=== PATIENT | male | born 1965 | race Caucasian/White ===

== ENCOUNTER 2016-12-06 09:29 | Inpatient (IN) | payer SELFPAY ==
[~2016-12-06] VITALS: Ht 182.9 cm; Wt 104.9 kg
[2016-12-06 10:43] LABS: BASOPHIL COUNT 0.1 K/uL (0-0.1); EOSINOPHIL (%) 2.3 % (0-5); EOSINOPHIL COUNT 0.2 K/uL (0-0.3); HEMATOCRIT 43.8 % (38.0-50.0); IMMATURE GRANULOCYTE (%) 0.2 % (0.0-0.7); INSTRUMENT ABS NEUTROPHIL CT 5.8 K/uL; LYMPHOCYTE COUNT 1.5 K/uL (1.0-2.8); MCH 28.9 PG (29.0-34.0); MCHC 32.2 G/DL (30.0-36.0); MCV 89.8 FL (86-99); MEAN PLAT.VOLUME 9.1 uM^3 (9.0-12.4); MONOCYTE (%) 9.1 % (3-12); MONOCYTE COUNT 0.8 K/uL (0-0.8); NEUTROPHIL (%) 69.7 % (45-76); NEUTROPHIL COUNT 5.8 K/uL (1.8-6.4); PLATELET COUNT 210 K/uL (156-360); RBC DIS.WIDTH-CV 12.4 % (11.8-14.6); RBC DIS.WIDTH-SD 40.7 % (39-53); RED BLOOD COUNT 4.88 M/uL (4.00-5.50); WHITE BLOOD COUNT 8.3 K/uL (4.1-10.2)
[2016-12-06 10:47] LABS: INTER. NORMALIZED RATIO 1.1; PROTHROMBIN TIME 12.2 SEC (10.2-12.9)
[2016-12-06 10:50] LABS: PTT 32.1 SEC (25-37)
[2016-12-06 10:53] LABS: CHLORIDE 106 mEq/L (99-109); POTASSIUM 4.3 mEq/L (3.7-5.4); SODIUM 142 mEq/L (136-147)
[2016-12-06 10:55] LABS: GLUCOSE 103 mg/dL (70-99)
[2016-12-06 10:56] LABS: ANION GAP 8 MEQ/L (2-14)
[2016-12-06 10:57] LABS: TOTAL BILIRUBIN 0.5 mg/dL (0.0-1.0)
[2016-12-06 10:58] LABS: ALKALINE PHOSPHATASE 56 IU/L (3-129); SERUM ETHYL ALCOHOL < 10 mg/dL
[2016-12-06 10:59] LABS: GFR ESTIMATE (CALCULATED) > 59 mL/min/
[2016-12-06 11:00] LABS: UREA NITROGEN (BUN) 20 mg/dL (9-23)
[2016-12-06 11:02] LABS: TROP-I INTERPRETATION NEGATIVE; TROPONIN-I < 0.01 ng/mL (0.0-0.30)
[2016-12-06 11:02] LABS: CREATINE KINASE 186 IU/L (1-294); TOTAL CK 186 IU/L (1-294)
[2016-12-06 11:08] LABS: CK-MB 5.5 ng/mL (0.0-4.9)
[2016-12-06 14:24] LABS: ADD MIUA? YES; BILIRUBIN NEGATIVE; BLOOD NEGATIVE; COLOR AMBER ((YELLOW)); GLUCOSE (STRIP) NEGATIVE; KETONES NEGATIVE; LEUKOCYTES NEGATIVE; NITRITE NEGATIVE; PROTEIN (STRIP) 30; UROBILINOGEN 0.2 MG/DL (0.2-1.0)
[2016-12-06 14:44] LABS: BACTERIA RARE /HPF; CALCIUM OXALATE CRYSTALS 2+ /HPF; EPITHELIAL CELLS 1+ /HPF; HYALINE CASTS TNTC /LPF; MUCUS 4+ /LPF; UCUL ADDED? NO; WHITE BLOOD CELLS 0-5 /HPF (0-5)
[2016-12-06 14:55] LABS: AMPHETAMINE NEGATIVE (500 ng/mL); BARBITURATES NEGATIVE (200 ng/mL); BENZODIAZEPINES PRESUMPTIVE POSITIVE (150 ng/mL); COCAINE NEGATIVE (150 ng/mL); INTERNAL CONTROLS VALID? YES; METHADONE NEGATIVE (200 ng/mL); METHAMPHETAMINE PRESUMPTIVE POSITIVE (500 ng/mL); OPIATES (MORPHINE) PRESUMPTIVE POSITIVE (100 ng/mL); OXYCODONE NEGATIVE (100 ng/mL); PHENCYCLIDINE NEGATIVE (25 ng/mL); PROPOXYPHENE NEGATIVE (300 ng/mL); THC CANNABINOIDS NEGATIVE (50 ng/mL); TRICYCLIC ANTIDEPRESSANTS NEGATIVE (300 ng/mL)
[2016-12-06 14:56] LABS: ADD MEDTOX COMMENT Y
[2016-12-06 15:34] LABS: BENZODIAZEPINES, URINE SCREEN POSITIVE (200 ng/mL)
[2016-12-06 16:31] VITALS: BP 161/92
[2016-12-06 19:16] LABS: TROP-I INTERPRETATION NEGATIVE; TROPONIN-I < 0.01 ng/mL (0.0-0.30)
[2016-12-06 21:00] VITALS: BP 135/75
[2016-12-07] VITALS (20 sets, daily range): BP systolic 99–220; BP diastolic 56–129
[2016-12-07 05:10] LABS: METH RESISTANT S AUREUS PCR NEGATIVE (NEGATIVE)
[2016-12-07 05:16] LABS: PROBE CHECK PASS; SPECIMEN PROCESSING CONTROL PASS
[2016-12-07 05:45] LABS: BASE EXCESS 3.4 mEq/L (-3 to +3); BICARBONATE 28.5 mEq/L (22-26); CARBOXY HGB 2.3 % (0-5); METHEMOGLOBIN 1.6 % (0-1.5); PCO2 44 mm Hg (35-45); PO2 113 mm Hg (80-100); pH 7.42 (7.35-7.45)
[2016-12-07 05:46] LABS: COMMENTS - BLOOD GASES C+; DEVICE VENT; FI02 40 %; MECHANICAL RATE 16 resp/min; MODE AC; PEEP 5 CM/H20; SITE RR; TIDAL VOLUME 500 ML; TOTAL RESP RATE 16 resp/min
[2016-12-07 06:13] LABS: TROP-I INTERPRETATION NEGATIVE; TROPONIN-I < 0.01 ng/mL (0.0-0.30)
[2016-12-07 06:42] LABS: ALKALINE PHOSPHATASE 55 IU/L (3-129); ANION GAP 13 MEQ/L (2-14); CHLORIDE 105 MEQ/L (99-109); DIRECT BILIRUBIN 0.1 mg/dL (0.0-0.3); GFR ESTIMATE (CALCULATED) > 59 mL/min/; GLUCOSE 90 mg/dL (70-99); POTASSIUM 4.4 MEQ/L (3.7-5.4); SAMPLE HEMOLYSIS CHECK 1; SAMPLE ICTERIC CHECK 0; SAMPLE LIPEMIA CHECK 0; SODIUM 142 MEQ/L (136-147); TOTAL BILIRUBIN 0.8 MG/DL (0.0-1.0); UREA NITROGEN (BUN) 15 mg/dL (9-23)
[2016-12-07 07:56] LABS: TRIGLYCERIDES 150 MG/DL (Normal: <150)
[2016-12-07 07:58] LABS: EOSINOPHIL (%) 1.3 % (0-5); EOSINOPHIL COUNT 0.1 K/uL (0-0.3); IMMATURE GRANULOCYTE (%) 0.3 % (0.0-0.7); LYMPHOCYTE COUNT 1.1 K/uL (1.0-2.8); MCH 30.3 PG (29.0-34.0); MCHC 34.6 G/DL (30.0-36.0); MCV 87.4 FL (86-99); MEAN PLAT.VOLUME 9.1 uM^3 (9.0-12.4); MONOCYTE (%) 6.8 % (3-12); MONOCYTE COUNT 0.5 K/uL (0-0.8); NEUTROPHIL (%) 76.8 % (45-76); PLATELET COUNT 208 K/uL (156-360); RBC DIS.WIDTH-CV 12.2 % (11.8-14.6); RBC DIS.WIDTH-SD 38.9 % (39-53); RED BLOOD COUNT 4.69 M/uL (4.00-5.50); WHITE BLOOD COUNT 7.8 K/uL (4.1-10.2)
[2016-12-07 12:49] LABS: POINT-OF-CARE METER ID UU13113748
[2016-12-07 18:45] LABS: ADD MIUA? YES; BILIRUBIN NEGATIVE; BLOOD SMALL; COLOR YELLOW ((YELLOW)); GLUCOSE (STRIP) NEGATIVE; KETONES 20; LEUKOCYTES NEGATIVE; NITRITE NEGATIVE; PROTEIN (STRIP) NEGATIVE; SPECIFIC GRAVITY 1.023 (1.000-1.030); UROBILINOGEN 0.2 MG/DL (0.2-1.0)
[2016-12-07 23:17] LABS: RED BLOOD CELLS 0-5 /HPF (0-5)
[2016-12-07 23:19] LABS: WHITE BLOOD CELLS RARE /HPF (0-5)
[2016-12-07 23:20] LABS: BACTERIA 2+ /HPF; EPITHELIAL CELLS NONE SEEN /HPF; UCUL ADDED? NO; URIC ACID CRYSTALS 1+ /HPF
[2016-12-07 23:22] LABS: AMORPHOUS URATES CRYSTALS 4+; MUCUS NONE SEEN /LPF
[2016-12-07 23:36] LABS: POINT-OF-CARE METER ID UU13113748
[2016-12-08] VITALS (26 sets, daily range): BP systolic 125–188; BP diastolic 72–106
[2016-12-08 05:51] LABS: HEMATOCRIT 43.6 % (38.0-50.0); MCH 29.6 PG (29.0-34.0); MCHC 34.2 G/DL (30.0-36.0); MCV 86.5 FL (86-99); MEAN PLAT.VOLUME 9.6 uM^3 (9.0-12.4); PLATELET COUNT 221 K/uL (156-360); RBC DIS.WIDTH-CV 12.3 % (11.8-14.6); RBC DIS.WIDTH-SD 38.5 % (39-53); RED BLOOD COUNT 5.04 M/uL (4.00-5.50)
[2016-12-08 06:05] LABS: POINT-OF-CARE METER ID UU14162636; POINT-OF-CARE USER ID ENVSME70
[2016-12-08 06:51] LABS: ANION GAP 11 MEQ/L (2-14); CHLORIDE 107 MEQ/L (99-109); CREATINE KINASE 164 IU/L (1-294); GFR ESTIMATE (CALCULATED) > 59 mL/min/; GLUCOSE 103 mg/dL (70-99); MAGNESIUM 1.9 mg/dl (1.3-2.7); SAMPLE HEMOLYSIS CHECK 0; SAMPLE ICTERIC CHECK 0; SAMPLE LIPEMIA CHECK 0; SODIUM 143 MEQ/L (136-147); UREA NITROGEN (BUN) 10 mg/dL (9-23)
[2016-12-08 06:53] LABS: POTASSIUM 3.5 MEQ/L (3.7-5.4)
[2016-12-08 12:14] LABS: POINT-OF-CARE METER ID UU14162636
[2016-12-08 17:39] LABS: POINT-OF-CARE METER ID UU14162636
[2016-12-08 23:53] LABS: POINT-OF-CARE METER ID UU14162636; POINT-OF-CARE USER ID RADDRS44
[2016-12-09] VITALS (22 sets, daily range): BP systolic 112–179; BP diastolic 68–102
[2016-12-09 05:09] LABS: HEMATOCRIT 42.1 % (38.0-50.0); MCH 30.4 PG (29.0-34.0); MCHC 34.4 G/DL (30.0-36.0); MCV 88.3 FL (86-99); MEAN PLAT.VOLUME 9.3 uM^3 (9.0-12.4); PLATELET COUNT 184 K/uL (156-360); RBC DIS.WIDTH-CV 12.7 % (11.8-14.6); RBC DIS.WIDTH-SD 41.2 % (39-53); RED BLOOD COUNT 4.77 M/uL (4.00-5.50); WHITE BLOOD COUNT 12.8 K/uL (4.1-10.2)
[2016-12-09 05:38] LABS: ANION GAP 9 MEQ/L (2-14); CHLORIDE 109 MEQ/L (99-109); GFR ESTIMATE (CALCULATED) > 59 mL/min/; GLUCOSE 139 mg/dL (70-99); MAGNESIUM 1.9 mg/dl (1.3-2.7); POTASSIUM 3.4 MEQ/L (3.7-5.4); SAMPLE HEMOLYSIS CHECK 0; SAMPLE ICTERIC CHECK 0; SAMPLE LIPEMIA CHECK 0; SODIUM 142 MEQ/L (136-147); UREA NITROGEN (BUN) 14 mg/dL (9-23)
[2016-12-09 18:45] LABS: POINT-OF-CARE METER ID UU14174217
[2016-12-10] VITALS (24 sets, daily range): BP systolic 123–183; BP diastolic 59–99
[2016-12-10 00:01] LABS: POINT-OF-CARE METER ID UU14208751
[2016-12-10 04:50] LABS: HEMATOCRIT 40.9 % (38.0-50.0); MCH 29.3 PG (29.0-34.0); MCHC 32.8 G/DL (30.0-36.0); MCV 89.3 FL (86-99); MEAN PLAT.VOLUME 9.4 uM^3 (9.0-12.4); PLATELET COUNT 191 K/uL (156-360); RBC DIS.WIDTH-CV 12.6 % (11.8-14.6); RBC DIS.WIDTH-SD 41.6 % (39-53); RED BLOOD COUNT 4.58 M/uL (4.00-5.50); WHITE BLOOD COUNT 10.8 K/uL (4.1-10.2)
[2016-12-10 05:00] LABS: CHLORIDE 108 mEq/L (99-109); SODIUM 138 mEq/L (136-147)
[2016-12-10 05:01] LABS: MAGNESIUM 2.1 mg/dL (1.3-2.7)
[2016-12-10 05:03] LABS: ANION GAP 8 MEQ/L (2-14)
[2016-12-10 05:06] LABS: GFR ESTIMATE (CALCULATED) > 59 mL/min/; UREA NITROGEN (BUN) 15 mg/dL (9-23)
[2016-12-10 06:12] LABS: TRIGLYCERIDES 177 MG/DL (Normal: <150)
[2016-12-10 06:25] LABS: GLUCOSE 113 mg/dL (70-99)
[2016-12-11] VITALS (21 sets, daily range): BP systolic 118–179; BP diastolic 68–94
[2016-12-11 00:18] LABS: POINT-OF-CARE METER ID UU13113748
[2016-12-11 05:14] LABS: EOSINOPHIL (%) 1.8 % (0-5); EOSINOPHIL COUNT 0.2 K/uL (0-0.3); HEMATOCRIT 41.8 % (38.0-50.0); IMMATURE GRANULOCYTE (%) 0.4 % (0.0-0.7); INSTRUMENT ABS NEUTROPHIL CT 7.5 K/uL; LYMPHOCYTE COUNT 1.4 K/uL (1.0-2.8); MCH 29.7 PG (29.0-34.0); MCHC 33.7 G/DL (30.0-36.0); MCV 88.2 FL (86-99); MEAN PLAT.VOLUME 9.9 uM^3 (9.0-12.4); MONOCYTE (%) 8.3 % (3-12); MONOCYTE COUNT 0.8 K/uL (0-0.8); NEUTROPHIL (%) 75.2 % (45-76); NEUTROPHIL COUNT 7.5 K/uL (1.8-6.4); PLATELET COUNT 209 K/uL (156-360); RBC DIS.WIDTH-CV 12.1 % (11.8-14.6); RBC DIS.WIDTH-SD 39.6 % (39-53); RED BLOOD COUNT 4.74 M/uL (4.00-5.50)
[2016-12-11 05:23] LABS: ANION GAP 11 MEQ/L (2-14); CHLORIDE 111 MEQ/L (99-109); GFR ESTIMATE (CALCULATED) > 59 mL/min/; GLUCOSE 108 mg/dL (70-99); MAGNESIUM 1.9 mg/dl (1.3-2.7); POTASSIUM 3.5 MEQ/L (3.7-5.4); SAMPLE HEMOLYSIS CHECK 0; SAMPLE ICTERIC CHECK 0; SAMPLE LIPEMIA CHECK 0; UREA NITROGEN (BUN) 17 mg/dL (9-23)
[2016-12-11 05:25] LABS: SODIUM 146 MEQ/L (136-147)
[2016-12-11 05:31] LABS: POINT-OF-CARE METER ID UU13113748
[2016-12-11 18:13] LABS: POINT-OF-CARE METER ID UU13113748
[2016-12-12] VITALS (11 sets, daily range): BP systolic 107–153; BP diastolic 60–81
[2016-12-12 00:36] LABS: POINT-OF-CARE METER ID UU13113748
[2016-12-12 05:23] LABS: POINT-OF-CARE METER ID UU14162636
[2016-12-12 05:47] LABS: EOSINOPHIL (%) 3.3 % (0-5); EOSINOPHIL COUNT 0.3 K/uL (0-0.3); HEMATOCRIT 37.2 % (38.0-50.0); IMMATURE GRANULOCYTE (%) 0.4 % (0.0-0.7); INSTRUMENT ABS NEUTROPHIL CT 5.2 K/uL; LYMPHOCYTE COUNT 1.6 K/uL (1.0-2.8); MCHC 33.9 G/DL (30.0-36.0); MCV 88.6 FL (86-99); MEAN PLAT.VOLUME 10.1 uM^3 (9.0-12.4); MONOCYTE COUNT 0.8 K/uL (0-0.8); NEUTROPHIL (%) 66.2 % (45-76); NEUTROPHIL COUNT 5.2 K/uL (1.8-6.4); PLATELET COUNT 207 K/uL (156-360); RBC DIS.WIDTH-CV 12.1 % (11.8-14.6); RBC DIS.WIDTH-SD 39.3 % (39-53); WHITE BLOOD COUNT 7.9 K/uL (4.1-10.2)
[2016-12-12 06:24] LABS: ANION GAP 7 MEQ/L (2-14); CHLORIDE 109 MEQ/L (99-109); GFR ESTIMATE (CALCULATED) > 59 mL/min/; GLUCOSE 91 mg/dL (70-99); POTASSIUM 3.3 MEQ/L (3.7-5.4); SAMPLE HEMOLYSIS CHECK 0; SAMPLE ICTERIC CHECK 0; SAMPLE LIPEMIA CHECK 0; SODIUM 143 MEQ/L (136-147); UREA NITROGEN (BUN) 20 mg/dL (9-23)
[2016-12-12] MEDS ORDERED: AMLODIPINE BESYL5 MG GT (16:25)
[2016-12-12] MEDS ORDERED: BACLOFEN10 MG GT (16:25)
[2016-12-12] MEDS ORDERED: QUETIAPINE FUM100 MG GT (16:25)
== END 2016-12-12 19:30 | disposition home or self-care (01) | DRG 897 ==
LOC: EME 09:29 → EDOF 12:49 → 5WEST 15:58 → 4WEST 12-07 03:35
PROVIDERS: Emergency Medicine; Hospitalist; Internal Medicine; Internal Medicine Nephrology; Internal Medicine Pulmonary Disease; Physician Assistant Medical
DX: F11.221 Opioid dependence with intoxication delirium (principal); F15.121 Other stimulant abuse with intoxication delirium; R45.6 Violent behavior; E87.2 Acidosis; N39.0 Urinary tract infection, site not specified; B95.2 Enterococcus as the cause of diseases classified elsewhere; E87.6 Hypokalemia; I10 Essential (primary) hypertension; J44.9 Chronic obstructive pulmonary disease, unspecified; G89.29 Other chronic pain; M54.5 Low back pain; F17.200 Nicotine dependence, unspecified, uncomplicated; F10.21 Alcohol dependence, in remission; E66.9 Obesity, unspecified; Z68.30 Body mass index [BMI] 30.0-30.9, adult
CPT/HCPCS: 31500; 36600; 70450; 70551; 71010; 80048; 80053; 80076; 81003; 82140; 82550; 82550 91; 82553; 82607; 82803; 82948; 83735; 84100; 84443; 84478; 84484; 84999; 85025; 85027; 85610; 85730; 87070; 87077; 87086; 87186; 87205; 87641; 93005; 94002; 94003; 94760; 95819; 99281; 99285; G0378; G0480; J0290; J0360; J1630; J1650; J1815; J1953; J2060; J2250; J2704; J3010; J3480; J7030; J7050; S0028

== ENCOUNTER 2017-08-29 11:34 | Emergency (ER) | payer OTHER ==
[~2017-08-29] VITALS: Ht 177.8 cm; Wt 127.1 kg
[~2017-08-29 11:34] MED LIST: AMLODIPINE BESYL5 MG GT; BACLOFEN10 MG GT; QUETIAPINE FUM100 MG GT
[2017-08-29 12:15] LABS: HEMATOCRIT 41.7 % (38.0-50.0); MCH 30.7 PG (29.0-34.0); MCHC 33.6 G/DL (30.0-36.0); MCV 91.4 FL (86-99); PLATELET COUNT 187 K/uL (156-360); RBC DIS.WIDTH-CV 12.3 % (11.8-14.6); RBC DIS.WIDTH-SD 41.1 % (39-53); RED BLOOD COUNT 4.56 M/uL (4.00-5.50); WHITE BLOOD COUNT 5.4 K/uL (4.1-10.2)
[2017-08-29 12:27] LABS: CHLORIDE 101 mEq/L (99-109); POTASSIUM 4.7 mEq/L (3.7-5.4); SODIUM 141 mEq/L (136-147)
[2017-08-29 12:28] LABS: GLUCOSE 113 mg/dL (70-99)
[2017-08-29 12:32] LABS: CREATININE 0.8 mg/dL (0.6-1.3); GFR ESTIMATE (CALCULATED) > 59 mL/min/ (58.99-99999)
[2017-08-29 12:33] LABS: UREA NITROGEN (BUN) 9 mg/dL (9-23)
[2017-08-29 12:38] LABS: TROP-I INTERPRETATION NEGATIVE; TROPONIN-I < 0.01 ng/mL (0.0-0.30)
[2017-08-29 14:18] LABS: APPEARANCE CLEAR ((CLEAR)); BILIRUBIN NEGATIVE; BLOOD NEGATIVE; COLOR YELLOW ((YELLOW)); GLUCOSE (STRIP) NEGATIVE; KETONES NEGATIVE; LEUKOCYTES NEGATIVE; NITRITE NEGATIVE; PROTEIN (STRIP) NEGATIVE; UCUL ADDED? NO; UROBILINOGEN 0.2 MG/DL (0.2-1.0)
[2017-08-29 14:32] LABS: COCAINE PRESUMPTIVE POSITIVE (150 ng/mL); METHAMPHETAMINE NEGATIVE (500 ng/mL); OPIATES (MORPHINE) PRESUMPTIVE POSITIVE (100 ng/mL); PHENCYCLIDINE NEGATIVE (25 ng/mL); THC CANNABINOIDS NEGATIVE (50 ng/mL)
[2017-08-29 14:33] LABS: AMPHETAMINE NEGATIVE (500 ng/mL); BARBITURATES NEGATIVE (200 ng/mL); BENZODIAZEPINES NEGATIVE (150 ng/mL); BUPRENORPHINE NEGATIVE (10 ng/mL); METHADONE NEGATIVE (200 ng/mL); OXYCODONE PRESUMPTIVE POSITIVE (100 ng/mL); PROPOXYPHENE NEGATIVE (300 ng/mL); TRICYCLIC ANTIDEPRESSANTS NEGATIVE (300 ng/mL)
[2017-08-29 16:05] LABS: TROP-I INTERPRETATION NEGATIVE; TROPONIN-I < 0.01 ng/mL (0.0-0.30)
[2017-08-29] MEDS ORDERED: VENTOLIN HFA18 GM IH (16:26)
[2017-08-29 17:50] VITALS: BP 177/87
== END 2017-08-29 17:50 | disposition home or self-care (01) ==
LOC: EME 11:34
PROVIDERS: Nurse Practitioner Family
DX: R60.0 Localized edema (principal); R06.02 Shortness of breath; F14.11 Cocaine abuse, in remission; F03.90 Unspecified dementia, unspecified severity, without behavioral disturbance, psychotic disturbance, mood disturbance, and anxiety; I10 Essential (primary) hypertension; F17.210 Nicotine dependence, cigarettes, uncomplicated; Z82.49 Family history of ischemic heart disease and other diseases of the circulatory system
CPT/HCPCS: 71046; 80048; 81003; 83880; 84484; 84999; 85027; 93005; 93970; 99281; 99285